=== PATIENT | male | born 1935 | race Caucasian/White ===

== ENCOUNTER → 2018-07-26 | Outpatient (REF) | payer MEDICARE, OTHER ==
[2018-07-26 13:57] LABS: HEMATOCRIT 34.1 % (39.0-50.0); HEMOGLOBIN 11.1 g/dl (14.0-18.0); IMMATURE GRANULOCYTES 0.3 % (0.0-5.0); MEAN CELL VOLUME 103.6 fL CALC (80.0-100.0); MEAN CORPUSCULAR HGB 33.7 pG CALC (26.0-32.0); MEAN CORPUSCULAR HGB CONC 32.6 g/L CALC (32.0-36.0); NEUT# 2.74 thou/uL (1.82-7.42); RED BLOOD COUNT 3.29 mill/uL (4.70-6.10); RED CELL DISTRI WIDTH 15.5 % (11.5-15.5)
[2018-07-26 14:19] LABS: ALBUMIN 4.1 g/dL (3.2-5.0); BILIRUBIN, TOTAL 0.5 mg/dL (0.0-1.4); C-REACTIVE PROTEIN 0.7 mg/dL (0-0.9); CREATININE 1.1 mg/dL (0.7-1.3)
== END | disposition home or self-care (01) ==
LOC: LAB 12:59
PROVIDERS: ATTEND Internal Medicine Rheumatology
DX: M05.79 Rheumatoid arthritis with rheumatoid factor of multiple sites without organ or systems involvement (principal); Z79.899 Other long term (current) drug therapy

== ENCOUNTER 2019-03-10 12:02 | Observation (INO) | payer MEDICARE, OTHER ==
[~2019-03-10] VITALS: Ht 162.6 cm; Wt 43.1 kg
--- NOTE | 2019-03-10 12:05 | NUR ---
PATIENT REQUESTING TO USE BATHROOM BEFORE TRIAGE. AMBULATES TO BATHROOM WITH SLOW STEADY GAIT.
--- NOTE | 2019-03-10 12:05 | NUR ---
BEDSIDE TRIAGE COMPLETED.
--- NOTE | 2019-03-10 12:15 | NUR ---
PT C/O INCREASE AND WORSENING COUGH OVER THE LAST THREE WEEKS WELL ANOREXIA AND ABD DISCOMFORT. PT STATES HE HAS INCREASING RT HIP PAIN X3 MONTHS WHEN DISCUSSING PAIN WITH PT HE INITIALLY DENIES FALL OR INJURY THEN PT REMEMBERED FALLING APPORX 3 MONTHS AGO.
--- NOTE | 2019-03-10 12:45 | NUR ---
REPORT FROM MISHEL CLEVELAND. CARE RELINQUISHED. UNABLE TO OBTAIN IV ACCESS AT THIS TIME. PT AND FAMILY UPDATED ON PLAN OF CARE AND WAIT TIME. CALL STILL WITHIN REACH.
--- NOTE | 2019-03-10 13:15 | NUR ---
IV SITE ESTABLISED AND LABS COLLECTED. PT NOTED TO HAVE BILATERAL LOWER LOBE CRACKLES. SA02 97% ON ROOM AIR, RR 22. WET, WEAK COUGH NOTED. PT REPORTS IT IS NON-PRODUCTIVE.
[2019-03-10 13:43] LABS: HEMOGLOBIN 11.1 g/dl (14.0-18.0); IMMATURE GRANULOCYTES 0.5 % (0.0-5.0); MEAN CELL VOLUME 106.9 fL CALC (80.0-100.0); MEAN CORPUSCULAR HGB 34.9 pG CALC (26.0-32.0); MEAN CORPUSCULAR HGB CONC 32.6 g/L CALC (32.0-36.0); NEUT# 6.8 thou/uL (1.82-7.42); RED BLOOD COUNT 3.18 mill/uL (4.70-6.10); RED CELL DISTRI WIDTH 15.9 % (11.5-15.5)
--- NOTE | 2019-03-10 14:00 | NUR ---
PT AOX4 RESTING ON STRETCHER WITH FAMILY AT BEDSIDE. PT DENIES ANY COMPLAINTS AT THIS TIME. CALL LIGHT WITHIN REACH AND WILL CONTINUE TO MONITOR.
[2019-03-10 14:05] LABS: ALBUMIN 3.8 g/dL (3.2-5.0); ALKALINE PHOSPHATASE 95 u/l (38-126); BUN 25 mg/dL (8-23); BUN/CREATININE RATIO 30 (12-20 (CALC)); CHLORIDE 104 mmol/l (95-108); CREATININE 0.9 mg/dL (0.7-1.3); GFR > 60 ML/MIN (>=60 (CALC)); GFR FOR AFR.AMER. > 60 ML/MIN (>=60 (CALC)); POTASSIUM 4.6 mmol/l (3.5-5.1); SGOT/AST 35 u/l (19-48); SODIUM 139 mmol/l (137-146); TOTAL PROTEIN 7.2 g/dL (6.3-8.2)
[2019-03-10 14:11] LABS: ANION GAP 17 (6-22 (CALC)); BILIRUBIN, TOTAL 0.3 mg/dL (0.0-1.4); CARBON DIOXIDE 23 mmol/l (22-30)
--- NOTE | 2019-03-10 14:30 | NUR ---
PT AOX4 RESTING ON STRETCHER AND WAS UPDATED ON STATUS. ANTIBIOTIC WITH NS MIXTURE STARTED AND PT TEACHING ABOUT MEDICATIONS WAS DONE. QUESTIONS WERE ANSWERED AND PT DEMONSTRATED UNDERSTANDING. PT SATO2 98-100% ROOM AIR AND RESPIRATIONS ARE AT 22 BPM. PT DOES NOT SHOW ANY SIGNS OF DISTRESS AND IS SLEEPING COMFORTABLY. WILL CONTINUE TO MONITOR.
[2019-03-10] MEDS ORDERED: REMICADE INJ100 MG IV (14:44)
[2019-03-10] MEDS ORDERED: OMEPRAZOLE10 MG PO (14:45)
[2019-03-10] MEDS ORDERED: FOLIC ACID1 MG PO (14:46)
[2019-03-10] MEDS ORDERED: FLUOXETINE10 M2 PO (14:46)
[2019-03-10] MEDS ORDERED: RHEUMATREX2.5 M1 PO (14:48)
[2019-03-10] MEDS ORDERED: PERCOCET 5/325M1 TAB PO (14:48)
--- NOTE | 2019-03-10 15:20 | NUR ---
AT [facility] TO DISCUSS RESULTS AND PLAN FOR ADMISSION.
[2019-03-10 15:23] LABS: URINE BILIRUBIN - DIPSTICK NEGATIVE (NEGATIVE); URINE BLOOD DIPSTICK NEGATIVE (NEGATIVE); URINE COLOR YELLOW; URINE GLUCOSE - DIPSTICK NEGATIVE (NEGATIVE); URINE KETONE NEGATIVE (NEGATIVE); URINE LEUK ESTERASE NEGATIVE (NEGATIVE); URINE NITRITE - DIPSTICK NEGATIVE (Negative); URINE PROTEIN - DIPSTICK TRACE mg/dL (NEG-TRACE); URINE SPECIFIC GRAVITY 1.015; URINE UROBILINOGEN - DIPSTICK 0.2 E.U./dL (0.2)
--- NOTE | 2019-03-10 15:30 | NUR ---
PT COMPLAINS OF NAUSEA AND MD NOTIFIED. AWAITING ORDERS FOR ADMINISTRATION.
--- NOTE | 2019-03-10 15:59 | NUR ---
REPORT ANTONY MARTIN LPN IN [place].
--- NOTE | 2019-03-10 16:15 | NUR ---
PT STATES RELIEF OF NAUSEA AFTER ADMINSITRATION OF ZOFRAN.
--- NOTE | 2019-03-10 16:30 | NUR ---
Admission Note Report Given to: MARIO Transported by: Wheelchair X Stretcher Transported with: X Nurse Transporter X Patent IV O2 Transmission Line Engineer PT TO ROOM 280 VIA STRETCHER IN STABLE CONDITION. CARE RELINQUISHED TO MARIO LEGGETT. PT BELONGINGS WERE TRANSPORTED WITH PT.
[2019-03-10 16:44] VITALS: BP 126/61
--- NOTE | 2019-03-10 17:25 | NUR ---
PT TRANSPORTED TO MS2 VIA STRETCHER ACCOMPIANED BY DICKSON,RN AND JEFFRN @[id number]. PT AMBULATED TO BED W/ ASSISTANCE. VS DONE. PT A/O X3. SPEECH IS CLEAR. PERRLA. RESP EVEN AND UNLABORED. LUNG DIMINISHED. BOWEL SOUNDS ACTIVE X4. STRONG RADIAL, WEAK PEDAL PULSES. #20 LFA NS @100. SITE APPEARS HEALTHY. SKIN INTACT. PT DENIES ANY PAIN OR NEEDS. POC DISCUSSED. SAFETY PRECAUTIONS IN PLACE. CALL LIGHT IN REACH. WILL CONTINUE TO MONITOR.
--- NOTE | 2019-03-10 19:00 | NUR ---
REPORT RECEIVED FROM OLEKSANDR MARTIN. PT RESTING IN BED. NO S/S OF DISTRESS AT THIS TIME. BED ALARM ACTIVE FOR PT SAFETY. WILL CONTINUE TO [facility].
[2019-03-10 19:20] VITALS: BP 107/66
--- NOTE | 2019-03-10 20:48 | NUR ---
PT RESTING IN BED. ALERT AND ORIENTED. RESPIRATIONS EVEN AND UNLABORED ON RA, DRY COUGH NOTED. LUNGS SOUND CLEAR/DIMINISHED. SKIN IS INTACT. BED ALARM ACTIVE FOR PT SAFETY. WILL CONTINUE TO MONITOR.
--- NOTE | 2019-03-11 00:08 | NUR ---
PT RESTING IN BED. RESPIRATIONS EVEN AND UNLABORED ON RA. NO S/S OF DISTRESS AT THIS TIME. BED ALARM ACTIVE FOR PT SAFETY. WILL CONTINUE TO MONITOR.
[2019-03-11 05:27] VITALS: BP 90/62
[2019-03-11 05:44] LABS: HEMATOCRIT 29.3 % (39.0-50.0); HEMOGLOBIN 9.6 g/dl (14.0-18.0); MEAN CELL VOLUME 106.2 fL CALC (80.0-100.0); MEAN CORPUSCULAR HGB 34.8 pG CALC (26.0-32.0); MEAN CORPUSCULAR HGB CONC 32.8 g/L CALC (32.0-36.0); RED BLOOD COUNT 2.76 mill/uL (4.70-6.10); RED CELL DISTRI WIDTH 16.2 % (11.5-15.5)
[2019-03-11 07:30] VITALS: BP 98/63
--- NOTE | 2019-03-11 07:30 | NUR ---
ASSESSMENT IS COMPLETED: IV SITE IS FREE FROM REDNESS OR EDEMA. HR IS REG, PULSES ARE STRONG X4, ABD IS SOFT WITH ACTIVE BS. BREATH SOUNDS ARE DIMINISHED, CONTINUE TO OBSERVE AND MONITOR.
--- NOTE | 2019-03-11 12:15 | NUR ---
PT HAS BEEN RELAXING IN BED AND VISITING WITH FAMILY NO DISTRESS NOTED. IV SITE IS FREE FROM REDNESS OR EDEMA.
--- NOTE | 2019-03-11 13:40 | NUR ---
FAMILY CAME AND INQUIRED ABOUT THE PAIN MEDICATION HE RECEIVES AT NIGHT. PT REQUIRES TO HAVE IT CUT IN HALF. OR TOO STROMG.
[2019-03-11 14:32] LABS: ANION GAP 12 (6-22 (CALC)); BUN 15 mg/dL (8-23); BUN/CREATININE RATIO 21 (12-20 (CALC)); CARBON DIOXIDE 22 mmol/l (22-30); CHLORIDE 108 mmol/l (95-108); CREATININE 0.7 mg/dL (0.7-1.3); GFR > 60 ML/MIN (>=60 (CALC)); GFR FOR AFR.AMER. > 60 ML/MIN (>=60 (CALC)); SODIUM 137 mmol/l (137-146)
[2019-03-11 14:34] LABS: POTASSIUM 5.2 mmol/l (3.5-5.1)
--- NOTE | 2019-03-11 15:00 | NUR ---
WATCHED PT DRINK ROOM TEMPERATURE WATER. NO COUGHING OR CHOKING . FAMILY IN THE ROOM. STATED" I ALWAYS COUGH WITH COLD FLUIDS." CONTINUE TO OSBERVE AND MONITOR.
[2019-03-11 15:20] VITALS: BP 98/57
--- NOTE | 2019-03-11 16:15 | NUR ---
PT HAS AMBULATED TO THE BATHROOM NO DISTRESS NOTED. IV SITE IS FREE FROM REDNESS OR EDEMA.
--- NOTE | 2019-03-11 19:30 | NUR ---
PATIENT RESTING IN BED WITH HOB ELEVATED.AWAKE ALERT AND ORIENTEDX3 WITH MULTIPLE FAMILY MEMBERS AT BEDSIDE. NO COMPLAINTS AT THIS TIME. IV SITE TO LEFT FOREARM INTACT WITH IVF NS PATENT AND INFUSING AT 100CC/HR. SITE APPEARS HEALTHY AT THIS TIME. SAFETY PRECAUTIONS REINFORCED. CALL LIGHT IN REACH. WILL CONT TO MONITOR.
[2019-03-11 19:33] VITALS: BP 87/51
--- NOTE | 2019-03-11 20:30 | NUR ---
PATIENT RESTING IN BED-VOIDED SMALL AMT OF TRACE URINE IN URINAL. MEDICATED WITH SCHEDULED PERCOCET 5/325MG 1/2 TABLET ORDERED AT HS. ALSO RECIEVED HIS COSOPT EYE GTTS. SAFETY REINFORCED. CALL LIGHT IN REACH. WILL CONT TO MONITOR.
[2019-03-12 00:04] VITALS: BP 99/47
--- NOTE | 2019-03-12 00:30 | NUR ---
APPEARS SLEEPING AT THIS TIME POSITONED ON HIS LEFT SIDE. EYE CLOSED. RESP ARE EVEN AND UNLABORED. CALL LIGHT IN REACH. WILL CONT TO MONITOR.
--- NOTE | 2019-03-12 02:15 | NUR ---
PATIENT APPEARS SLEEPING AT THIS TIME WITH HOB ELEVATED AND EYES CLOSED. IVF PATENT AND INFUSING AT 100CC/HR. CALL LIGHT IN REACH. WILL CONT TO MONITOR.
[2019-03-12 03:44] VITALS: BP 105/54
[2019-03-12 05:34] LABS: HEMATOCRIT 34.1 % (39.0-50.0); HEMOGLOBIN 10.8 g/dl (14.0-18.0); MEAN CELL VOLUME 109.3 fL CALC (80.0-100.0); MEAN CORPUSCULAR HGB 34.6 pG CALC (26.0-32.0); MEAN CORPUSCULAR HGB CONC 31.7 g/L CALC (32.0-36.0); NEUT# 6.6 thou/uL (1.82-7.42); RED BLOOD COUNT 3.12 mill/uL (4.70-6.10); RED CELL DISTRI WIDTH 16.2 % (11.5-15.5)
[2019-03-12 05:44] LABS: ANION GAP 14 (6-22 (CALC)); BUN 12 mg/dL (8-23); BUN/CREATININE RATIO 16 (12-20 (CALC)); CARBON DIOXIDE 20 mmol/l (22-30); CHLORIDE 110 mmol/l (95-108); CREATININE 0.7 mg/dL (0.7-1.3); GFR > 60 ML/MIN (>=60 (CALC)); GFR FOR AFR.AMER. > 60 ML/MIN (>=60 (CALC)); POTASSIUM 4.7 mmol/l (3.5-5.1); SODIUM 139 mmol/l (137-146)
[2019-03-12 08:15] VITALS: BP 105/67
--- NOTE | 2019-03-12 08:15 | NUR ---
ASSESSMENT IS COMPLTED: IV SITE IS FREE FROM REDNESS OR EDEMA. HR IS REG, PULSES ARE STRONG X4, ABD IS SOFT WITH ACTIVE BS. BREATH SOUNDS ARE CLEAR WITH CRACKLES ON THE LEFT. CONTINUE TO OBSERVE AND MONITOR.
--- NOTE | 2019-03-12 12:00 | NUR ---
PT HAS BEEN RESTING IN BED FAMILY IN THE ROOM.
[2019-03-12] MEDS ORDERED: GUAIFENESI100 MG/51 PO (14:34)
[2019-03-12] MEDS ORDERED: DOXYCYCL HYC100 MG PO (14:34)
--- NOTE | 2019-03-12 15:30 | NUR ---
DISCHARGE INSTRUCTIONS GIVEN. FAMILY IN THE ROOM. IV SITE DISCONTINUED CATHETER INTACT, NO REDNESS OR EDEMA. Discharge instructions given. Patient verbalizes understanding of same. Discharged in stable condition via Wheelchair to Home with family. All belongings sent with pt.
--- NOTE | 2019-03-12 15:33 | NUR ---
ATTEMPTED TO LEAVE A MESSAGE ALOT OF STAIIC NOISE. UNABLE TO LEAVE THE MESSAGE INFORMED FAMILY
== END 2019-03-12 15:50 | disposition home or self-care (01) ==
LOC: ED 12:02 → ED-I 12:33 → ED 12:33 → ED-I 14:38 → ED 14:53 → MS2 14:54
PROVIDERS: Internal Medicine; ADMIT Internal Medicine; ATTEND Internal Medicine
PROC: 3E0234Z Introduction of Serum, Toxoid and Vaccine into Muscle, Percutaneous Approach (ICD-10-PCS; principal; 2019-03-11)
DX: J18.9 Pneumonia, unspecified organism (principal); M06.9 Rheumatoid arthritis, unspecified; R63.0 Anorexia; Z68.1 Body mass index [BMI] 19.9 or less, adult; Z79.899 Other long term (current) drug therapy; Z87.891 Personal history of nicotine dependence; Z23 Encounter for immunization
CPT/HCPCS: J1650

== ENCOUNTER 2019-03-13 16:36 | Inpatient (IN) | payer MEDICARE, OTHER ==
[~2019-03-13] VITALS: Ht 165.1 cm; Wt 49.0 kg
[~2019-03-13 16:36] MED LIST: DOXYCYCL HYC100 MG PO; FLUOXETINE10 M2 PO; FOLIC ACID1 MG PO; GUAIFENESI100 MG/51 PO; OMEPRAZOLE10 MG PO; PERCOCET 5/325M1 TAB PO; REMICADE INJ100 MG IV; RHEUMATREX2.5 M1 PO
[2019-03-13 17:24] LABS: HEMATOCRIT 30.1 % (39.0-50.0); HEMOGLOBIN 9.9 g/dl (14.0-18.0); IMMATURE GRANULOCYTES 1.5 % (0.0-5.0); MEAN CELL VOLUME 104.5 fL CALC (80.0-100.0); MEAN CORPUSCULAR HGB 34.4 pG CALC (26.0-32.0); MEAN CORPUSCULAR HGB CONC 32.9 g/L CALC (32.0-36.0); NEUT# 10.66 thou/uL (1.82-7.42); RED BLOOD COUNT 2.88 mill/uL (4.70-6.10); RED CELL DISTRI WIDTH 16.2 % (11.5-15.5)
[2019-03-13 17:33] LABS: ALBUMIN 3.1 g/dL (3.2-5.0); ALKALINE PHOSPHATASE 91 u/l (38-126); BILIRUBIN, TOTAL 0.4 mg/dL (0.0-1.4); BUN 11 mg/dL (8-23); BUN/CREATININE RATIO 14 (12-20 (CALC)); CARBON DIOXIDE 20 mmol/l (22-30); CHLORIDE 106 mmol/l (95-108); CREATININE 0.8 mg/dL (0.7-1.3); GFR > 60 ML/MIN (>=60 (CALC)); GFR FOR AFR.AMER. > 60 ML/MIN (>=60 (CALC)); POTASSIUM 4.3 mmol/l (3.5-5.1); SGOT/AST 39 u/l (19-48); TOTAL PROTEIN 6.2 g/dL (6.3-8.2)
[2019-03-13 17:54] LABS: ANION GAP 9 (6-22 (CALC)); SODIUM 131 mmol/l (137-146)
[2019-03-13 18:31] LABS: URINE BILIRUBIN - DIPSTICK NEGATIVE (NEGATIVE); URINE BLOOD DIPSTICK SMALL (NEGATIVE); URINE COLOR YELLOW; URINE GLUCOSE - DIPSTICK NEGATIVE (NEGATIVE); URINE KETONE TRACE mg/dL (NEGATIVE); URINE LEUK ESTERASE NEGATIVE (NEGATIVE); URINE NITRITE - DIPSTICK NEGATIVE (Negative); URINE PROTEIN - DIPSTICK 30 mg/dL (NEG-TRACE); URINE SPECIFIC GRAVITY >=1.030; URINE UROBILINOGEN - DIPSTICK 0.2 E.U./dL (0.2)
[2019-03-13 18:54] LABS: URINE SQUAMOUS EPITHELIAL CELL FEW EPI/hpf (0-FEW)
[2019-03-13 21:00] VITALS: BP 100/58
[2019-03-13 21:15] VITALS: BP 70/49
[2019-03-13 21:30] VITALS: BP 114/78
[2019-03-13 22:00] VITALS: BP 110/78
[2019-03-13 23:00] VITALS: BP 97/72
[2019-03-14] VITALS (33 sets, daily range): BP systolic 92–121; BP diastolic 62–89
[2019-03-14 05:14] LABS: HEMATOCRIT 28.3 % (39.0-50.0); HEMOGLOBIN 9.6 g/dl (14.0-18.0); IMMATURE GRANULOCYTES 0.6 % (0.0-5.0); MEAN CELL VOLUME 102.5 fL CALC (80.0-100.0); MEAN CORPUSCULAR HGB 34.8 pG CALC (26.0-32.0); MEAN CORPUSCULAR HGB CONC 33.9 g/L CALC (32.0-36.0); NEUT# 9.47 thou/uL (1.82-7.42); RED BLOOD COUNT 2.76 mill/uL (4.70-6.10); RED CELL DISTRI WIDTH 16.2 % (11.5-15.5)
[2019-03-14 05:38] LABS: ANION GAP 13 (6-22 (CALC)); BUN 10 mg/dL (8-23); BUN/CREATININE RATIO 13 (12-20 (CALC)); CARBON DIOXIDE 21 mmol/l (22-30); CHLORIDE 108 mmol/l (95-108); CREATININE 0.7 mg/dL (0.7-1.3); GFR > 60 ML/MIN (>=60 (CALC)); GFR FOR AFR.AMER. > 60 ML/MIN (>=60 (CALC)); POTASSIUM 4.3 mmol/l (3.5-5.1)
[2019-03-14 05:50] LABS: SODIUM 138 mmol/l (137-146)
[2019-03-15] VITALS (10 sets, daily range): BP systolic 79–125; BP diastolic 57–86
[2019-03-15 05:14] LABS: HEMATOCRIT 29.9 % (39.0-50.0); HEMOGLOBIN 9.9 g/dl (14.0-18.0); MEAN CORPUSCULAR HGB 33.8 pG CALC (26.0-32.0); MEAN CORPUSCULAR HGB CONC 33.1 g/L CALC (32.0-36.0); RED BLOOD COUNT 2.93 mill/uL (4.70-6.10); RED CELL DISTRI WIDTH 16.2 % (11.5-15.5)
[2019-03-15 05:33] LABS: BILIRUBIN, TOTAL 0.3 mg/dL (0.0-1.4); BUN 7 mg/dL (8-23); BUN/CREATININE RATIO 10 (12-20 (CALC)); CARBON DIOXIDE 22 mmol/l (22-30); CHLORIDE 113 mmol/l (95-108); CREATININE 0.7 mg/dL (0.7-1.3); GFR > 60 ML/MIN (>=60 (CALC)); GFR FOR AFR.AMER. > 60 ML/MIN (>=60 (CALC)); SGOT/AST 68 u/l (19-48); SODIUM 140 mmol/l (137-146)
[2019-03-15 05:47] LABS: ALBUMIN 2.2 g/dL (3.2-5.0); ALKALINE PHOSPHATASE 159 u/l (38-126); ANION GAP 8 (6-22 (CALC)); POTASSIUM 3.4 mmol/l (3.5-5.1); TOTAL PROTEIN 4.9 g/dL (6.3-8.2)
== END 2019-03-15 09:05 | DRG 871 ==
LOC: ED 16:36 → ED-I 17:18 → ED 17:18 → ED-I 17:50 → ED 19:17 → ICU 19:18
PROVIDERS: Family Medicine; Internal Medicine; ADMIT Internal Medicine; ATTEND Internal Medicine
PROC: 0BH17EZ Insertion of Endotracheal Airway into Trachea, Via Natural or Artificial Opening (ICD-10-PCS; principal; 2019-03-13)
PROC: 5A1945Z Respiratory Ventilation, 24-96 Consecutive Hours (ICD-10-PCS; 2019-03-13)
PROC: 02HV33Z Insertion of Infusion Device into Superior Vena Cava, Percutaneous Approach (ICD-10-PCS; 2019-03-13)
PROC: 0T9B70Z Drainage of Bladder with Drainage Device, Via Natural or Artificial Opening (ICD-10-PCS; 2019-03-13)
PROC: 5A09357 Assistance with Respiratory Ventilation, Less than 24 Consecutive Hours, Continuous Positive Airway Pressure (ICD-10-PCS; 2019-03-13)
DX: A41.9 Sepsis, unspecified organism (principal); J96.01 Acute respiratory failure with hypoxia; J18.9 Pneumonia, unspecified organism; R65.20 Severe sepsis without septic shock; M06.9 Rheumatoid arthritis, unspecified; Z79.899 Other long term (current) drug therapy; Z87.891 Personal history of nicotine dependence
CPT/HCPCS: J1650; J3370; S0164

== ENCOUNTER 2019-06-22 | Emergency (ER) | payer MEDICARE, OTHER ==
[2019-06-22] MEDS ORDERED: CEPHALEXIN500 M1 PO (11:24)
[2019-06-22] MEDS ORDERED: MUPIROCIN21 TOP (11:24)
== END 2019-06-22 11:55 | disposition home or self-care (01) ==
PROC: 0HQ1XZZ Repair Face Skin, External Approach (ICD-10-PCS; principal; 2019-06-22)
DX: S52.121A Displaced fracture of head of right radius, initial encounter for closed fracture (principal); S01.511A Laceration without foreign body of lip, initial encounter; S01.21XA Laceration without foreign body of nose, initial encounter; S61.511A Laceration without foreign body of right wrist, initial encounter; S61.412A Laceration without foreign body of left hand, initial encounter; S00.93XA Contusion of unspecified part of head, initial encounter; W01.0XXA Fall on same level from slipping, tripping and stumbling without subsequent striking against object, initial encounter; Y92.009 Unspecified place in unspecified non-institutional (private) residence as the place of occurrence of the external cause

== ENCOUNTER 2019-06-26 | Emergency (ER) | payer MEDICARE, OTHER ==
[~2019-06-26] MED LIST changes: +CEPHALEXIN500 M1 PO; +MUPIROCIN21 TOP
[2019-06-26] MEDS ORDERED: VITAMIN D320 MCG PO (01:47)
[2019-06-26] MEDS ORDERED: VITAMIN B-12250 MCG PO (01:47)
[2019-06-26] MEDS ORDERED: MIRTAZAPINE15 MG PO (01:48)
[2019-06-26] MEDS ORDERED: FOLIC ACI1 PO (01:48)
[2019-06-26] MEDS ORDERED: IRON18 M1 PO (01:50)
[2019-06-26 02:23] LABS: HEMATOCRIT 35.6 % (39.0-50.0); HEMOGLOBIN 11.5 g/dl (14.0-18.0); IMMATURE GRANULOCYTES 0.2 % (0.0-5.0); MEAN CORPUSCULAR HGB 32.3 pG CALC (26.0-32.0); MEAN CORPUSCULAR HGB CONC 32.3 g/L CALC (32.0-36.0); NEUT# 5.51 thou/uL (1.82-7.42); RED BLOOD COUNT 3.56 mill/uL (4.70-6.10); RED CELL DISTRI WIDTH 14.4 % (11.5-15.5)
[2019-06-26 02:32] LABS: ALBUMIN 3.6 g/dL (3.2-5.0); ALKALINE PHOSPHATASE 87 u/l (38-126); ANION GAP 14 (6-22 (CALC)); BUN 29 mg/dL (8-23); BUN/CREATININE RATIO 36 (12-20 (CALC)); CARBON DIOXIDE 26 mmol/l (22-30); CHLORIDE 102 mmol/l (95-108); CREATININE 0.8 mg/dL (0.7-1.3); GFR > 60 ML/MIN (>=60 (CALC)); GFR FOR AFR.AMER. > 60 ML/MIN (>=60 (CALC)); POTASSIUM 4.3 mmol/l (3.5-5.1); SGOT/AST 27 u/l (19-48); SODIUM 137 mmol/l (137-146); TOTAL PROTEIN 7.1 g/dL (6.3-8.2)
[2019-06-26 02:34] LABS: PROTHROMBIN TIME 10.5 SECONDS (9.0-12.5)
[2019-06-26 02:35] LABS: BILIRUBIN, TOTAL 0.3 mg/dL (0.0-1.4)
[2019-06-26 02:44] LABS: MYOGLOBIN 39 ng/mL (0 - 121)
[2019-06-26 02:49] LABS: URINE BILIRUBIN - DIPSTICK NEGATIVE (NEGATIVE); URINE BLOOD DIPSTICK NEGATIVE (NEGATIVE); URINE COLOR YELLOW; URINE GLUCOSE - DIPSTICK NEGATIVE (NEGATIVE); URINE KETONE NEGATIVE (NEGATIVE); URINE LEUK ESTERASE NEGATIVE (NEGATIVE); URINE NITRITE - DIPSTICK NEGATIVE (Negative); URINE PROTEIN - DIPSTICK NEGATIVE (NEG-TRACE); URINE UROBILINOGEN - DIPSTICK 0.2 E.U./dL (0.2)
== END 2019-06-26 05:00 | disposition home or self-care (01) ==
PROVIDERS: Emergency Medicine
DX: R41.0 Disorientation, unspecified (principal); R94.31 Abnormal electrocardiogram [ECG] [EKG]

== ENCOUNTER 2019-07-30 | Emergency (ER) | payer MEDICARE, OTHER ==
[~2019-07-30] MED LIST changes: +FOLIC ACI1 PO; +IRON18 M1 PO; +MIRTAZAPINE15 MG PO; +VITAMIN B-12250 MCG PO; +VITAMIN D320 MCG PO
[2019-07-30 01:43] LABS: HEMATOCRIT 36.6 % (39.0-50.0); HEMOGLOBIN 11.7 g/dl (14.0-18.0); IMMATURE GRANULOCYTES 0.4 % (0.0-5.0); MEAN CELL VOLUME 99.5 fL CALC (80.0-100.0); MEAN CORPUSCULAR HGB 31.8 pG CALC (26.0-32.0); NEUT# 5.32 thou/uL (1.82-7.42); RED BLOOD COUNT 3.68 mill/uL (4.70-6.10); RED CELL DISTRI WIDTH 15.4 % (11.5-15.5)
[2019-07-30 01:58] LABS: URINE BILIRUBIN - DIPSTICK NEGATIVE (NEGATIVE); URINE BLOOD DIPSTICK SMALL (NEGATIVE); URINE COLOR YELLOW; URINE GLUCOSE - DIPSTICK NEGATIVE (NEGATIVE); URINE KETONE NEGATIVE (NEGATIVE); URINE LEUK ESTERASE NEGATIVE (NEGATIVE); URINE NITRITE - DIPSTICK NEGATIVE (Negative); URINE PROTEIN - DIPSTICK NEGATIVE (NEG-TRACE); URINE UROBILINOGEN - DIPSTICK 0.2 E.U./dL (0.2)
[2019-07-30 02:00] LABS: ALKALINE PHOSPHATASE 111 u/l (38-126); ANION GAP 15 (6-22 (CALC)); BILIRUBIN, TOTAL 0.4 mg/dL (0.0-1.4); BUN 33 mg/dL (8-23); BUN/CREATININE RATIO 37 (12-20 (CALC)); CARBON DIOXIDE 25 mmol/l (22-30); CHLORIDE 103 mmol/l (95-108); CREATININE 0.9 mg/dL (0.7-1.3); GFR > 60 ML/MIN (>=60 (CALC)); GFR FOR AFR.AMER. > 60 ML/MIN (>=60 (CALC)); POTASSIUM 4.3 mmol/l (3.5-5.1); SGOT/AST 30 u/l (19-48); SODIUM 139 mmol/l (137-146)
[2019-07-30 02:03] LABS: URINE RBC 0-2 RBC/hpf (0-5)
[2019-07-30 02:04] LABS: BARBITURATES NEGATIVE (NEGATIVE); COCAINE NEGATIVE (NEGATIVE); METHADONE NEGATIVE (NEGATIVE); OXCYCODONE POSITIVE (NEGATIVE); TETRAHYDROCANNABIONOL NEGATIVE (NEGATIVE); TRICYLIC ANTIDEPRESSANTS NEGATIVE (NEGATIVE)
[2019-07-30 02:06] LABS: ALBUMIN 4.6 g/dL (3.2-5.0)
[2019-07-30 02:12] LABS: MYOGLOBIN 40 ng/mL (0 - 121)
== END 2019-07-30 03:35 | disposition home or self-care (01) ==
PROVIDERS: Family Medicine
DX: R41.0 Disorientation, unspecified (principal)

== ENCOUNTER 2019-08-26 17:03 | Inpatient (IN) | payer MEDICARE, OTHER ==
[~2019-08-26] VITALS: Ht 170.2 cm; Wt 43.0 kg
--- NOTE | 2019-08-26 17:03 | NUR ---
PTTOROOM VIAEMSALERTAND RESPONSIVE
--- NOTE | 2019-08-26 17:30 | NUR ---
PT PRESENTS WITH WEAKNESS AND DIZZINESS WITH LOW BP. PT HAS DRY MUCUS MEMBRANES AND APPEARS TO BE A BIT DISORIENTED. HE HIS AOX4. EMS STATES A BP OF 84/52. PT HAS A NON PROD COUGH. HE HAS A HX OF REACURRENT PNEUMONIA. PT HAS CRACKLES IN LOWER LUNG BASES BILATERALLY. HE DENIES N/V OR ABD PAIN. WILL CONTINUE TO MONITOR.
--- NOTE | 2019-08-26 18:00 | NUR ---
PT PLACED TRENDELENBURG BECAUSE OF SYSTOLIC OF 80. PT O2 IS ALSO LOW IN THE HIGH 70s WITH O2 RUNNING AT 3 L. WILL SEE IF BP RISES WITH POSITION IF NOT PT WILL BE PLACED HIGH FOWLERS.
--- NOTE | 2019-08-26 18:00 | NUR ---
PT ADVISED OF PLAN OF CARE AND WAIT BECAUSE OF BUSY ER. PT DENIES ANY NEEDS
--- NOTE | 2019-08-26 18:10 | NUR ---
PT O2 IS AT 95% AND CONTINUES TO BE IN POSITION FOR BP TO TRY AND INCREASE
[2019-08-26 18:18] LABS: HEMATOCRIT 32.2 % (39.0-50.0); HEMOGLOBIN 9.9 g/dl (14.0-18.0); IMMATURE GRANULOCYTES 0.3 % (0.0-5.0); MEAN CELL VOLUME 104.5 fL CALC (80.0-100.0); MEAN CORPUSCULAR HGB 32.1 pG CALC (26.0-32.0); MEAN CORPUSCULAR HGB CONC 30.7 g/L CALC (32.0-36.0); NEUT# 8.01 thou/uL (1.82-7.42); RED BLOOD COUNT 3.08 mill/uL (4.70-6.10); RED CELL DISTRI WIDTH 16.1 % (11.5-15.5)
[2019-08-26 18:35] LABS: ALKALINE PHOSPHATASE 99 u/l (38-126); ANION GAP 12 (6-22 (CALC)); BILIRUBIN, TOTAL 0.4 mg/dL (0.0-1.4); BUN 26 mg/dL (8-23); BUN/CREATININE RATIO 27 (12-20 (CALC)); CARBON DIOXIDE 24 mmol/l (22-30); CHLORIDE 104 mmol/l (95-108); GFR > 60 ML/MIN (>=60 (CALC)); GFR FOR AFR.AMER. > 60 ML/MIN (>=60 (CALC)); POTASSIUM 3.9 mmol/l (3.5-5.1); SGOT/AST 23 u/l (19-48); SODIUM 136 mmol/l (137-146)
[2019-08-26 18:36] LABS: ALBUMIN 3.1 g/dL (3.2-5.0); TOTAL PROTEIN 6.3 g/dL (6.3-8.2)
--- NOTE | 2019-08-26 19:15 | NUR ---
DISCONTINUED PT PLACEMENT OF TRENDELENBURG POSITION THAT HE WAS PLACED IN EARLIER BECAUSE OF BP SYSTOLIC OF 82 AND IT WAS CONSISTANT
[2019-08-26 19:19] LABS: URINE BILIRUBIN - DIPSTICK NEGATIVE (NEGATIVE); URINE BLOOD DIPSTICK NEGATIVE (NEGATIVE); URINE COLOR YELLOW; URINE GLUCOSE - DIPSTICK NEGATIVE (NEGATIVE); URINE KETONE NEGATIVE (NEGATIVE); URINE LEUK ESTERASE NEGATIVE (NEGATIVE); URINE NITRITE - DIPSTICK NEGATIVE (Negative); URINE PROTEIN - DIPSTICK NEGATIVE (NEG-TRACE); URINE SPECIFIC GRAVITY <=1.005; URINE UROBILINOGEN - DIPSTICK 0.2 E.U./dL (0.2)
--- NOTE | 2019-08-26 19:40 | NUR ---
PT BP IS AT 91 SYSTOLIC AND O2 IS ABLE TO BE MAINTAINED ABOVE 95%
--- NOTE | 2019-08-26 20:01 | NUR ---
PT RESTING ON STRETCHER AND IS CONTINUOUSLY ADVISED TO BREATH THROUGH NOSE TO GET O2. HE LIKES TO BREATH THROUGH MOUTH AND O2 SAT DECREASE. WILL CONTINUE OT MONITOR.
--- NOTE | 2019-08-26 22:14 | NUR ---
GAVE REPORT TO NANDO
--- NOTE | 2019-08-26 22:23 | NUR ---
EXTERNAL CATH APPLIED APPARENTLY UNABLE TO PASS ESCOBAR. EXPLAINED BEING HELD. PT OK AND MADE COMFORTABLE. FAMILY TO THE HOUSE.
--- NOTE | 2019-08-26 22:33 | NUR ---
DR BACA NOTIFIED OF BLOOD PRESSURE OF 83/47. MAINTANENCE FLUIDS STARTED.
--- NOTE | 2019-08-27 00:26 | NUR ---
PT STATES THAT THE CATHETER WAS LEAKING... IT WAS RE-POSITIONED AND STILL LEAKING. 16 ESCOBAR INSERTED WITHOUT DIFFICULTY. PT TOLERATED WELL.
--- NOTE | 2019-08-27 03:15 | NUR ---
PT FELT LIKE HE COULDN'T REST...REQUESTED SOMETHING TO SLEEP.
--- NOTE | 2019-08-27 04:22 | NUR ---
REPORT TO MISHEL STEEN/MED SURG. PT RESTING. VSS.
--- NOTE | 2019-08-27 04:31 | NUR ---
TO FLOOR VIA STRETCHER WITH O2 VIA NC. WITH MEGHA C/RN
--- NOTE | 2019-08-27 04:31 | NUR ---
CATHETER EMPTIED FOR 600 CC OF CLEAR TRACE.
[2019-08-27 04:58] VITALS: BP 95/42
--- NOTE | 2019-08-27 07:29 | NUR ---
PT RESTING IN BED WITH EYES CLOSED. PT STATES PAIN IS 0/10 ON NUMERIC PAIN SCALE. NO S/S OF ANY ACUTE DISTRESS NOTED AT THIS TIME.
[2019-08-27 07:41] VITALS: BP 93/56
--- NOTE | 2019-08-27 07:41 | NUR ---
PT SITTING IN BED. A&O X3. NO DISTRESS NOTED. O2 VIA NC IN PLACE @2L. ESCOBAR CATHETER IN PLACE DRAINING VIA GRAVITY WITH CLEAR YELLOW URINE NOTED. NO OTHER NEEDS AT THIS TIME. ASSESSMENT COMPLETED. DISCUSSED POC. ASSESSMENT COMPLETED. CALL LIGHT IN REACH. CONTINUE TO MONTIOR.
--- NOTE | 2019-08-27 09:12 | NUR ---
EXPLAINED TO PT THAT ORTHOSTATIC BP WILL BE TAKEN TODAY AND DONE ONCE EVERY SHIFT. PT VERBALIZED UNDERSTANDING. CALL LIGHT IN REACH. CONTINUE TO MONITOR.
[2019-08-27 12:05] VITALS: BP 94/53
[2019-08-27 15:43] VITALS: BP 106/88
--- NOTE | 2019-08-27 17:39 | NUR ---
PT C/O OF RT ELBOW PAIN. ULTRAM GIVEN.
[2019-08-27 18:21] VITALS: BP 88/57
[2019-08-27 23:42] VITALS: BP 83/47
--- NOTE | 2019-08-28 03:04 | NUR ---
PT MEDICATED FOR PAIN AT THIS TIME. DENIED ANY OTHER NEEDS.
[2019-08-28 03:09] VITALS: BP 98/57
[2019-08-28 06:41] LABS: HEMATOCRIT 26.5 % (39.0-50.0); HEMOGLOBIN 8.4 g/dl (14.0-18.0); MEAN CELL VOLUME 101.9 fL CALC (80.0-100.0); MEAN CORPUSCULAR HGB 32.3 pG CALC (26.0-32.0); MEAN CORPUSCULAR HGB CONC 31.7 g/L CALC (32.0-36.0); RED BLOOD COUNT 2.6 mill/uL (4.70-6.10); RED CELL DISTRI WIDTH 15.9 % (11.5-15.5)
[2019-08-28 06:54] LABS: ANION GAP 6 (6-22 (CALC)); BUN 14 mg/dL (8-23); BUN/CREATININE RATIO 22 (12-20 (CALC)); CARBON DIOXIDE 26 mmol/l (22-30); CHLORIDE 108 mmol/l (95-108); CREATININE 0.6 mg/dL (0.7-1.3); GFR > 60 ML/MIN (>=60 (CALC)); GFR FOR AFR.AMER. > 60 ML/MIN (>=60 (CALC)); POTASSIUM 4.6 mmol/l (3.5-5.1); SODIUM 135 mmol/l (137-146)
[2019-08-28 08:00] VITALS: BP 91/45
--- NOTE | 2019-08-28 09:00 | NUR ---
PT AWAKE, ALERT, ORIENTED X 3. LUNGS CLEAR, 2 LPM NC. NO SHORTNESS OF BREATH NOTED. PT WITH LOW BP NORMALLY, NOT DIZZY FROM SAME. PT ASSISTED TO BSC THIS MORNING, HAD BM. ESCOBAR CATHETER IN PLACE.
[2019-08-28 11:35] VITALS: BP 100/66
[2019-08-28 14:55] VITALS: BP 89/56
--- NOTE | 2019-08-28 17:00 | NUR ---
PT WITH VISITORS AT BEDSIDE PART OF THE DAY. PT MEDICATED FOR RIGHT ELBOW PAIN. LUNGS CLEAR, RESP TREATMENTS PROVIDED. NO SOB.
[2019-08-28 18:31] VITALS: BP 89/42
--- NOTE | 2019-08-28 20:00 | NUR ---
RECEIVED REPORT FROM DAY NURSE PATIENT APPEARS TO BE SLEEPING WITH EYES CLOSED, HOKED TO O2 @ 2LPM VIA NC EVEN UNLABORED BREATHING CALL LIGHT AT REACH.
--- NOTE | 2019-08-28 23:00 | NUR ---
EMS IV LEAKING, REMOVED, NEW IV STARTED ON LAC G22.
[2019-08-28 23:16] VITALS: BP 85/50
[2019-08-29 05:01] VITALS: BP 90/56
--- NOTE | 2019-08-29 05:18 | NUR ---
PATIENT RESTING IN BED, C/O PAIN ON RT ELBOW PRN TRAMADOL GIVEN AT THIS TIME.
[2019-08-29 05:21] LABS: HEMATOCRIT 26.9 % (39.0-50.0); HEMOGLOBIN 8.6 g/dl (14.0-18.0); MEAN CELL VOLUME 103.1 fL CALC (80.0-100.0); RED BLOOD COUNT 2.61 mill/uL (4.70-6.10); RED CELL DISTRI WIDTH 15.9 % (11.5-15.5)
[2019-08-29 05:51] LABS: ANION GAP 10 (6-22 (CALC)); BUN 16 mg/dL (8-23); BUN/CREATININE RATIO 23 (12-20 (CALC)); CARBON DIOXIDE 25 mmol/l (22-30); CHLORIDE 103 mmol/l (95-108); CREATININE 0.7 mg/dL (0.7-1.3); GFR > 60 ML/MIN (>=60 (CALC)); GFR FOR AFR.AMER. > 60 ML/MIN (>=60 (CALC)); MAGNESIUM 1.8 mg/dL (1.6-2.3); POTASSIUM 5.1 mmol/l (3.5-5.1); SODIUM 133 mmol/l (137-146)
[2019-08-29 07:26] VITALS: BP 83/46
--- NOTE | 2019-08-29 07:29 | NUR ---
PATIENT STILL FOR SPUTUM CULTURE,PATIENT STATED UNABLE TO EXPELL MUCU AT THIS TIME.
--- NOTE | 2019-08-29 08:57 | NUR ---
TX WAS ATTEMPTED THIS AM, HOWEVER PT WAS HAVING BREAKFAST. RETURNED AFTER ~30 MINS, PT WAS IN THE TOILET. WILL TRY AGAIN LATER.
--- NOTE | 2019-08-29 09:00 | NUR ---
PT IS ALERT AND ORIENTED X 3, FRAIL. LUNGS CLEAR, RA. SUPPLEMENTAL OXYGEN DISCONTINUED THIS MORNING, SATS REMAIN ACCEPTABLE. ESCOBAR CATHETER REMOVED. IS AT BEDSIDE. PT ANTICIPATES DISCHARGE TO HOME TODAY.
[2019-08-29] MEDS ORDERED: LEVAQUIN750 MG PO ×2 (10:42)
--- NOTE | 2019-08-29 14:00 | NUR ---
PT HAS BEEN SEEN BY DR GRAVES THIS MORNING, DISCHARGED TO HOME. PT WAS ABLE TO VOID AFTER ESCOBAR REMOVED. PT AND VERBALIZED UNDERSTANDING OF DC INSTRUCTIONS. PT TAKEN TO VEHICLE BY WHEELCHAIR, LEAVES [facility] IN STABLE CONDITION.
== END 2019-08-29 14:00 | DRG 194 ==
LOC: ED 17:03 → ED-I 18:06 → ED 18:06 → ED-I 20:00 → ED 20:48 → ED-I 20:49 → MS2 20:49
PROVIDERS: Nurse Practitioner Family; ADMIT Internal Medicine; ATTEND Internal Medicine
PROC: 0T9B70Z Drainage of Bladder with Drainage Device, Via Natural or Artificial Opening (ICD-10-PCS; principal; 2019-08-27)
DX: J18.9 Pneumonia, unspecified organism (principal); R64 Cachexia; Z68.1 Body mass index [BMI] 19.9 or less, adult; J44.0 Chronic obstructive pulmonary disease with (acute) lower respiratory infection; E46 Unspecified protein-calorie malnutrition; M06.9 Rheumatoid arthritis, unspecified; R53.1 Weakness; I95.9 Hypotension, unspecified; Z87.891 Personal history of nicotine dependence
CPT/HCPCS: J2060

== ENCOUNTER 2020-02-01 09:57 | Observation (INO) | payer MEDICARE, OTHER ==
[~2020-02-01] VITALS: Ht 170.2 cm; Wt 41.0 kg
[~2020-02-01 09:57] MED LIST changes: +LEVAQUIN750 MG PO
[2020-02-01] MEDS ORDERED: TRAMADOL HCL50 MG PO (10:26)
[2020-02-01] MEDS ORDERED: OMEPRAZOLE10 MG PO (10:28)
[2020-02-01] MEDS ORDERED: METHOTREXATE2.5 MG PO (10:33)
[2020-02-01 11:16] LABS: HEMATOCRIT 31.3 % (39.0-50.0); HEMOGLOBIN 9.7 g/dl (14.0-18.0); IMMATURE GRANULOCYTES 0.5 % (0.0-5.0); MEAN CELL VOLUME 99.7 fL CALC (80.0-100.0); MEAN CORPUSCULAR HGB 30.9 pG CALC (26.0-32.0); NEUT# 3.94 thou/uL (1.82-7.42); RED BLOOD COUNT 3.14 mill/uL (4.70-6.10); RED CELL DISTRI WIDTH 16.7 % (11.5-15.5)
[2020-02-01 11:35] LABS: ALBUMIN 3.6 g/dL (3.2-5.0); ALKALINE PHOSPHATASE 88 u/l (38-126); ANION GAP 10 (6-22 (CALC)); BILIRUBIN, TOTAL 0.5 mg/dL (0.0-1.4); BUN 24 mg/dL (8-23); BUN/CREATININE RATIO 26 (12-20 (CALC)); CARBON DIOXIDE 28 mmol/l (22-30); CHLORIDE 101 mmol/l (95-108); CREATININE 0.9 mg/dL (0.7-1.3); GFR > 60 ML/MIN (>=60 (CALC)); GFR FOR AFR.AMER. > 60 ML/MIN (>=60 (CALC)); POTASSIUM 4.2 mmol/l (3.5-5.1); SGOT/AST 26 u/l (19-48); SODIUM 135 mmol/l (137-146); TOTAL PROTEIN 6.7 g/dL (6.3-8.2)
[2020-02-01 11:45] LABS: MYOGLOBIN 42 ng/mL (0 - 121)
[2020-02-01 15:12] LABS: URINE BILIRUBIN - DIPSTICK NEGATIVE (NEGATIVE); URINE BLOOD DIPSTICK NEGATIVE (NEGATIVE); URINE COLOR YELLOW; URINE GLUCOSE - DIPSTICK NEGATIVE (NEGATIVE); URINE KETONE NEGATIVE (NEGATIVE); URINE LEUK ESTERASE NEGATIVE (NEGATIVE); URINE NITRITE - DIPSTICK NEGATIVE (Negative); URINE PROTEIN - DIPSTICK NEGATIVE (NEG-TRACE); URINE UROBILINOGEN - DIPSTICK 0.2 E.U./dL (0.2)
[2020-02-01 15:58] VITALS: BP 104/53
[2020-02-01 19:16] VITALS: BP 92/50
[2020-02-01 23:43] VITALS: BP 90/44
[2020-02-02 03:50] VITALS: BP 117/68
[2020-02-02 07:45] LABS: HEMATOCRIT 32.2 % (39.0-50.0); HEMOGLOBIN 9.8 g/dl (14.0-18.0); MEAN CELL VOLUME 101.3 fL CALC (80.0-100.0); MEAN CORPUSCULAR HGB 30.8 pG CALC (26.0-32.0); MEAN CORPUSCULAR HGB CONC 30.4 g/dL CAL (32.0-36.0); RED BLOOD COUNT 3.18 mill/uL (4.70-6.10); RED CELL DISTRI WIDTH 16.3 % (11.5-15.5)
[2020-02-02 08:15] LABS: ANION GAP 11 (6-22 (CALC)); BUN 14 mg/dL (8-23); BUN/CREATININE RATIO 23 (12-20 (CALC)); CARBON DIOXIDE 23 mmol/l (22-30); CHLORIDE 104 mmol/l (95-108); CREATININE 0.6 mg/dL (0.7-1.3); GFR > 60 ML/MIN (>=60 (CALC)); GFR FOR AFR.AMER. > 60 ML/MIN (>=60 (CALC)); MAGNESIUM 1.8 mg/dL (1.6-2.3); POTASSIUM 4.5 mmol/l (3.5-5.1); SODIUM 133 mmol/l (137-146)
[2020-02-02 09:40] VITALS: BP 103/66
== END 2020-02-02 09:54 | disposition home health service (06) ==
LOC: ED 09:57 → ED-I 12:04 → ED 12:15 → MS2 12:16
PROVIDERS: Emergency Medicine; Nurse Practitioner; ADMIT Internal Medicine; ATTEND Internal Medicine
DX: I95.9 Hypotension, unspecified (principal); R53.1 Weakness; D64.9 Anemia, unspecified; M06.9 Rheumatoid arthritis, unspecified; K21.9 Gastro-esophageal reflux disease without esophagitis; G89.4 Chronic pain syndrome; R13.10 Dysphagia, unspecified; R64 Cachexia; Z68.1 Body mass index [BMI] 19.9 or less, adult; Z87.891 Personal history of nicotine dependence; Z20.828 Contact with and (suspected) exposure to other viral communicable diseases
CPT/HCPCS: G0378; J1650

== ENCOUNTER 2020-08-12 10:23 | Inpatient (IN) | payer MEDICARE, OTHER ==
[~2020-08-12] VITALS: Ht 170.2 cm; Wt 44.0 kg
[~2020-08-12 10:23] MED LIST changes: +METHOTREXATE2.5 MG PO; +TRAMADOL HCL50 MG PO
--- NOTE | 2020-08-12 10:50 | NUR ---
PATIENT RESTING QUIETLY. CALL STILL IN REACH
[2020-08-12 10:57] LABS: HEMATOCRIT 34.6 % (39.0-50.0); HEMOGLOBIN 10.8 g/dl (14.0-18.0); IMMATURE GRANULOCYTES 0.8 % (0.0-5.0); MEAN CELL VOLUME 106.5 fL CALC (80.0-100.0); MEAN CORPUSCULAR HGB 33.2 pG CALC (26.0-32.0); MEAN CORPUSCULAR HGB CONC 31.2 g/dL CAL (32.0-36.0); NEUT# 12.56 thou/uL (1.82-7.42); RED BLOOD COUNT 3.25 mill/uL (4.70-6.10); RED CELL DISTRI WIDTH 14.5 % (11.5-15.5)
[2020-08-12] MEDS ORDERED: FINASTERIDE5 MG PO (11:09)
[2020-08-12] MEDS ORDERED: MIDODRINE HYDR2.5 MG PO (11:10)
[2020-08-12] MEDS ORDERED: MEGESTROL AC20 MG PO (11:11)
[2020-08-12] MEDS ORDERED: VITAMIN B-12500 MCG PO (11:12)
[2020-08-12] MEDS ORDERED: OXYCODONE5 M1 PO (11:12)
[2020-08-12] MEDS ORDERED: IRON325 M1 (11:13)
[2020-08-12] MEDS ORDERED: VITAMIN D31000 UNI1 PO (11:13)
[2020-08-12 11:16] LABS: ALBUMIN 3.4 g/dL (3.2-5.0); ALKALINE PHOSPHATASE 106 u/l (38-126); ANION GAP 13 (6-22 (CALC)); BILIRUBIN, TOTAL 0.7 mg/dL (0.0-1.4); BUN 16 mg/dL (8-23); BUN/CREATININE RATIO 18 (12-20 (CALC)); CARBON DIOXIDE 25 mmol/l (22-30); CHLORIDE 104 mmol/l (95-108); CREATININE 0.9 mg/dL (0.7-1.3); GFR > 60 ML/MIN (>=60 (CALC)); GFR FOR AFR.AMER. > 60 ML/MIN (>=60 (CALC)); POTASSIUM 4.1 mmol/l (3.5-5.1); SGOT/AST 24 u/l (19-48); SODIUM 138 mmol/l (137-146); TOTAL PROTEIN 6.6 g/dL (6.3-8.2)
--- NOTE | 2020-08-12 12:30 | NUR ---
SPOKE TO PATIENT DAUGHTER REGARDING PATIENT NEED FOR CASE MANAGEMENT REFERRAL. ADMITTING NURSE AWARE.
--- NOTE | 2020-08-12 13:48 | NUR ---
report called to heatherRN IN SBAR FORMAT.
--- NOTE | 2020-08-12 14:30 | NUR ---
PT ARRIVED TO UNIT VIA STRETCHER WITH ER STAFF; ALERT AND ORIENTED X 2. SLID FROM STRETCHER TO BED WITH 3 PERSON ASSIST; PT IS AN EXTENSIVE ASSIST; ABLE TO TURN SIDE TO SIDE INDEPENDENTLY; MOVES SLOWLY DUE TO SEVERE JOINT PAIN; C/O 9/10 ACHING PAIN TO BILATERAL SHOULDERS. RESPIRATIONS EVEN AND UNLABROED ON ROOM AIR. VSS. IV FLUIDS INFUSING UPON ARRIVAL INTO EMS SITE TO [facility]; SITE APPEARS HEALTHY. TELE ON; SR 71. ORIENTED TO ROOM AND CALL LIGHT SYSTEM. POC DISCUSSED; PT ENCOURAGED TO VERBALIZE CONCERNS. STATES UNDERSTANDING. SAFETY MEASURES IN PLACE. CALL LIGHT WITHIN REACH.
--- NOTE | 2020-08-12 14:38 | NUR ---
PATIENT TRANSFERRED SAFELY TO ROOM 270 VIA STETCHER. IV INTACT UPON ARRIVAL.
[2020-08-12 14:40] VITALS: BP 108/71
--- NOTE | 2020-08-12 14:40 | NUR ---
URINE SAMPLE OBTAINED VIA URINAL AND SENT TO LAB. PHOTOS OF SKIN TAKEN AND PLACED IN CHART; PT HAS SCATTERED ECCHYMOSIS TO ALL EXTREMITIES AND SKIN TEARS TO CRISTAL AND LEFT LOWER BACK DUE TO FREQUENT FALLS AT HOME; MILD REDNESS NOTE TO COCCYX; DRESSINGS TO SKIN TEARS APPLIED AND BARRIER CREAM APPLIED TO OTHER AREAS OF SKIN. 0.45% NS NOW INFUSING AT 100 ML/HR PER ORDER. PT ALSO INCONTINENT OF URINE AND LINENS REPLACED.
[2020-08-12 16:16] LABS: URINE BILIRUBIN - DIPSTICK NEGATIVE (NEGATIVE); URINE BLOOD DIPSTICK NEGATIVE (NEGATIVE); URINE COLOR YELLOW; URINE GLUCOSE - DIPSTICK NEGATIVE (NEGATIVE); URINE KETONE NEGATIVE (NEGATIVE); URINE LEUK ESTERASE NEGATIVE (NEGATIVE); URINE NITRITE - DIPSTICK NEGATIVE (Negative); URINE PH 6.5 (4.5-8.0); URINE PROTEIN - DIPSTICK NEGATIVE (NEG-TRACE); URINE UROBILINOGEN - DIPSTICK 0.2 E.U./dL (0.2)
--- NOTE | 2020-08-12 18:31 | NUR ---
DAUGHTER CALLED FOR UPDATE; QUESTIONS ANSWERED TO SATISFACTION.
[2020-08-12 19:00] VITALS: BP 115/74
--- NOTE | 2020-08-12 19:08 | NUR ---
EMS IV FOUND DISLODGED AT THIS TIME; IV FLUIDS PAUSED.
[2020-08-13 00:10] VITALS: BP 108/79
[2020-08-13 04:00] VITALS: BP 100/58
--- NOTE | 2020-08-13 05:13 | NUR ---
PATIENT IS ALERT AND ORIENTED TO PERSON AND PLACE. ABLE TO MAKE NEEDS KNOWN. RESPIRATIONS EASY ON ROOM AIR. C/O ADDRESSED WITH PRN PERCOCET WITH POSITIVE EFFECT. CONTINUES ON IVF 1/2 NS AT 100ML/HR. CONTINUES ON IVABT THERAPY FOR PNEUMONIA. ON TELEMETRY RUNNING SR. BED IN LOW POSITION. CALL LIGHT WITHIN REACH.
[2020-08-13 06:13] LABS: HEMATOCRIT 29.3 % (39.0-50.0); HEMOGLOBIN 9.1 g/dl (14.0-18.0); MEAN CELL VOLUME 107.7 fL CALC (80.0-100.0); MEAN CORPUSCULAR HGB 33.5 pG CALC (26.0-32.0); MEAN CORPUSCULAR HGB CONC 31.1 g/dL CAL (32.0-36.0); RED BLOOD COUNT 2.72 mill/uL (4.70-6.10); RED CELL DISTRI WIDTH 14.4 % (11.5-15.5)
[2020-08-13 06:45] LABS: ANION GAP 9 (6-22 (CALC)); BUN 14 mg/dL (8-23); BUN/CREATININE RATIO 16 (12-20 (CALC)); CARBON DIOXIDE 25 mmol/l (22-30); CHLORIDE 105 mmol/l (95-108); CREATININE 0.9 mg/dL (0.7-1.3); GFR > 60 ML/MIN (>=60 (CALC)); GFR FOR AFR.AMER. > 60 ML/MIN (>=60 (CALC)); HDL CHOLESTEROL 32 mg/dL (>=40); MAGNESIUM 1.9 mg/dL (1.6-2.3); POTASSIUM 4.4 mmol/l (3.5-5.1); SODIUM 136 mmol/l (137-146); TOTAL TRIGLYCERIDES 65 mg/dl (30-149); VLDL CHOLESTROL 13 mg/dl (0-38 (CALC))
[2020-08-13 06:58] LABS: CALCULATED LDLCHOLESTEROL 72 mg/dL (62-129 (CALC)); CHOLESTEROL HDL RATIO 3.7 (<4.4 (CALC)); TOTAL CHOLESTEROL 117 mg/dl (0-199)
--- NOTE | 2020-08-13 08:00 | NUR ---
PATIENT AWAKE AND ALERT. DAUGHTER CALLLED AND ASKED IF FATHER RECIEVED BAG OF CANDY AND CARD.
--- NOTE | 2020-08-13 10:00 | NUR ---
PATIENT AGITATED AND ASKING TO LEAVE
--- NOTE | 2020-08-13 10:20 | NUR ---
I attempted to evluate this gentleman. He did answer a few questions but was cantankerous and refused to get out of bed. In fact he said " vinay it down, I will refuse to get out of bed until I go to rehab". I tried to explain that i needed to assess him to get him in rehab but he continued to refuse.
[2020-08-13 10:51] VITALS: BP 101/63
[2020-08-13 15:00] VITALS: BP 122/71
--- NOTE | 2020-08-13 16:00 | NUR ---
PATIENT PULLED OUT IV. SHRUTHI NOTIFIED N SAID OK TO REMAIN OUT. WILL SWITCH TO PO MEDS
[2020-08-13 18:49] VITALS: BP 113/63
--- NOTE | 2020-08-13 21:55 | NUR ---
PT RESTING QUIETLY IN BED WIT EYES CLOSED. BREATHING EVEN AND UNLABORED. NO S/S OF DISTRESS NOTED, NO COMPLAINTS VOICED. WILL CONTINUE TO MONITOR
[2020-08-14 00:14] VITALS: BP 92/53
--- NOTE | 2020-08-14 01:00 | NUR ---
PT IS RESTING COMFORTABLY IN BED WITH EYES CLOSED. NO COMPLAINTS AT THIS TIME. DENIES PAIN. BREATHING EVEN AND UNLABORED. LUNGS CLEAR IN BILATERAL UPPER LOBES AND RIGHT MIDDLE, LUNGS DIMINSHED IN BASES. WILL MONITOR.
[2020-08-14 04:00] VITALS: BP 100/69
--- NOTE | 2020-08-14 04:10 | NUR ---
PT HAS RESTED WELL THROUGHOUT THE SHIFT. C/O PAIN TO BILATERAL SHOULDERS, PERCOCET AMINSTERED. BREATHING EVEN AND UNLABORED. NO IV MEDICATIONS AT THIS TIME. SAFETY PRECAUTION IN PLACE. WILL MONITOR
[2020-08-14 06:12] LABS: HEMATOCRIT 32.7 % (39.0-50.0); HEMOGLOBIN 10.2 g/dl (14.0-18.0); IMMATURE GRANULOCYTES 0.7 % (0.0-5.0); MEAN CELL VOLUME 105.8 fL CALC (80.0-100.0); MEAN CORPUSCULAR HGB CONC 31.2 g/dL CAL (32.0-36.0); NEUT# 7.26 thou/uL (1.82-7.42); RED BLOOD COUNT 3.09 mill/uL (4.70-6.10); RED CELL DISTRI WIDTH 14.2 % (11.5-15.5)
[2020-08-14 06:26] LABS: ALKALINE PHOSPHATASE 83 u/l (38-126); ANION GAP 12 (6-22 (CALC)); BILIRUBIN, TOTAL 0.6 mg/dL (0.0-1.4); BUN 13 mg/dL (8-23); BUN/CREATININE RATIO 15 (12-20 (CALC)); CARBON DIOXIDE 24 mmol/l (22-30); CHLORIDE 103 mmol/l (95-108); CREATININE 0.9 mg/dL (0.7-1.3); GFR > 60 ML/MIN (>=60 (CALC)); GFR FOR AFR.AMER. > 60 ML/MIN (>=60 (CALC)); POTASSIUM 4.8 mmol/l (3.5-5.1); SGOT/AST 20 u/l (19-48); SODIUM 134 mmol/l (137-146); TOTAL PROTEIN 5.4 g/dL (6.3-8.2)
[2020-08-14 06:27] LABS: ALBUMIN 2.7 g/dL (3.2-5.0)
--- NOTE | 2020-08-14 08:05 | NUR ---
ASSESSMENT IS COMPLETED: HR IS REG, PULSES ARE STRONG X4, ABD IS SOFT WITH ACTIVE BS BREATH SOUDS ARE CLEAR BILATERALLY.NO C/O SOB, TELE MONITOR IN PLACE.
--- NOTE | 2020-08-14 09:27 | NUR ---
S: PATIENT INITIALLY REFUSED TO PARTICIPATE WITH PT, HOWEVER, AFTER SOME ENCOURAGEMENT FROM PT PATIENT AGREED TO PERFORM GAIT TRAINING. O: FRAIL; ALERT, ORIENTED TO PLACE, TIME, AND PERSON. A: PATIENT STILL REQUIRES MIN-A WITH BED MOBILITY AND STS, INCREASED THORACIC KYPHOSIS WITH DECREASED STEP LENGTH AND STRIDE AND SLOW PACE DURING GAIT TRAINING USING WALKER REQUIRING CGA FOR SAFETY. VERBAL CUES ON PROPER SEQUENCING, POSTURE, AND GAIT PATTERN DURING TRANSFERS AND GAIT TRAINING. PATIENT ALSO REQUIRED BRIEF REST PERIODS DURING AMBULATION DUE TO FATIGUE. P: BED MOBILITY (SUPINE <> SIT), STS, AND GAIT TRAINING X 40 FEET USING WALKER AND CGA FOR SAFETY. AMPAC = 13
[2020-08-14 10:30] VITALS: BP 104/72
--- NOTE | 2020-08-14 12:30 | NUR ---
pt relaxing in bed , encouraged to eat lunch. no iv site
[2020-08-14] MEDS ORDERED: ZITHROMAX250 MG PO (14:20)
[2020-08-14] MEDS ORDERED: LEVAQUIN750 M1 PO (14:50)
[2020-08-14] MEDS ORDERED: OXYCODONE5 M1 PO (14:50)
[2020-08-14 15:00] VITALS: BP 120/71
--- NOTE | 2020-08-14 16:30 | NUR ---
PT IS RELAXING IN BED WITH NO DISTRESS NOTED. FAMILY CALLED AND INQUIRED HOW HE IS DOING. CONTINU ETO OBSERVE AND MONITOR.
--- NOTE | 2020-08-14 17:29 | NUR ---
SPOKE WITH ABDELRAHMAN AT [facility] AND GAVE REPORT. PT STATED" MY FAMILY IS JUST THROWING ME AWAY" EXPLAINED HE NEEDED THE REHAB FOR STRENGTHENING. VERBALIZED UNDERSTANDING.
--- NOTE | 2020-08-14 17:35 | NUR ---
INFORMED THE FAMILY RE: PT BEING MOVED TO [facility].
== END 2020-08-14 17:21 | DRG 194 ==
LOC: ED 10:23 → ED-I 12:25 → ED 13:17 → MS2 13:18
PROVIDERS: Family Medicine; Nurse Practitioner; ADMIT Internal Medicine; ATTEND Internal Medicine
DX: J18.9 Pneumonia, unspecified organism (principal); R64 Cachexia; Z68.1 Body mass index [BMI] 19.9 or less, adult; I95.9 Hypotension, unspecified; R53.1 Weakness; G89.4 Chronic pain syndrome; M19.90 Unspecified osteoarthritis, unspecified site; N40.0 Benign prostatic hyperplasia without lower urinary tract symptoms; M06.9 Rheumatoid arthritis, unspecified; K21.9 Gastro-esophageal reflux disease without esophagitis; Z87.01 Personal history of pneumonia (recurrent); Z87.891 Personal history of nicotine dependence; Z20.822 Contact with and (suspected) exposure to COVID-19
CPT/HCPCS: J1650